=== PATIENT | female | born 1985 | race Caucasian/White ===

== ENCOUNTER 2020-01-28 20:21 | Inpatient (IN) | payer OTHER ==
[2020-01-29] MEDS ORDERED: Calcium Carbonate 500 MG Tab.Chew PO PRN (00:48)
[2020-01-29] MEDS ORDERED: Nalbuphine 10 MG/ML Syringe IVPUSH PRN (00:48)
[2020-01-29] MEDS ORDERED: Sodium Chloride 0.9% 10 ML Syringe FLUSH PRN (00:48)
[2020-01-29] MEDS ORDERED: Acetaminophen 325 MG Tab PO PRN ×2 (00:48→08:14)
[2020-01-29] MEDS ORDERED: Ondansetron 4 MG/2 ML SDV IVPUSH PRN ×2 (00:48→02:22)
[2020-01-29] MEDS ORDERED: Lidocaine 1% 50 ML MDV INJECT ONE (00:48)
[2020-01-29] MEDS ORDERED: Oxytocin/Lactated Ringers 10 UNIT/1,000 ML BAG IV SCH ×2 (01:00)
[2020-01-29] MEDS: Lactated Ringers 1,000 ML IV SCH ×3 (01:45→05:54)
[2020-01-29] MEDS ORDERED: ePHEDrine 50 MG/ML SDV IVPUSH PRN (02:22)
[2020-01-29] MEDS ORDERED: fentaNYL 100 MCG/2 ML SDV EPIDUR PRN (02:22)
--- NOTE | 2020-01-29 02:24 | PCM.PREANE ---
Preanesthetic Assessment - Procedure Proposed Procedure: Epidural - Anesthesia/Transfusion/Family Hx Anesthesia History: Prior Anesthesia Without Reaction Family History of Anesthesia Reaction: No Transfusion History: No Prior Transfusion(s) Intubation History: Unknown - Review of Systems General: No Symptoms Pulmonary: No Symptoms Cardiovascular: No Symptoms, Lightheadedness (positional changes/) Gastrointestinal: No Symptoms (GERD) Neurological: No Symptoms (Motion sickness with flying), Numbness (Bilateral hands when sleeping) Other: Reports: None - Physical Assessment NPO Status Date: 01/28/20 NPO Status Time: 20:00 Vital Signs: HR:92 Sat:99% B/P:114/83 Temp:98.8 Resp:20 Height: 1.6 m Weight: 97.069 kg ASA Class: 2 Mental Status: Alert & Oriented x3 Airway Class: Mallampati = 2 Dentition: Reports: Normal Dentition, Caries Thyro-Mental Finger Breadths: 3 Mouth Opening Finger Breadths: 3 ROM/Head Extension: Full Lungs: Clear to Auscultation, Normal Respiratory Effort Cardiovascular: Regular Rate, Regular Rhythm, No Murmurs - Lab Values: Laboratory Last Values WBC 11.31 K/mm3 (3.98-10.04) H 01/29/20 01:01 RBC 4.14 M/mm3 (3.98-5.22) 01/29/20 01:01 Hgb 12.7 gm/dl (11.2-15.7) 01/29/20 01:01 Hct 38.9 % (34.1-44.9) 01/29/20 01:01 MCV 94.0 fl (79.4-94.8) 01/29/20 01:01 MCH 30.7 pg (25.6-32.2) 01/29/20 01:01 MCHC 32.6 g/dl (32.2-35.5) 01/29/20 01:01 RDW Std Deviation 44.6 fL (36.4-46.3) 01/29/20 01:01 Plt Count 183 K/mm3 (182-369) 01/29/20 01:01 MPV 10.8 fl (9.4-12.3) 01/29/20 01:01 Neut % (Auto) 74.6 % (34.0-71.1) H 01/29/20 01:01 Lymph % (Auto) 17.0 % (19.3-51.7) L 01/29/20 01:01 Rabun % (Auto) 7.6 % (4.7-12.5) 01/29/20 01:01 Eos % (Auto) 0.4 (0.7-5.8) L 01/29/20 01:01 Baso % (Auto) 0.2 % (0.1-1.2) 01/29/20 01:01 Neut # (Auto) 8.44 K/mm3 (1.56-6.13) H 01/29/20 01:01 Lymph # (Auto) 1.92 K/mm3 (1.18-3.74) 01/29/20 01:01 Rabun # (Auto) 0.86 K/mm3 (0.24-0.36) H 01/29/20 01:01 Eos # (Auto) 0.05 K/mm3 (0.04-0.36) 01/29/20 01:01 Baso # (Auto) 0.02 K/mm3 (0.01-0.08) 01/29/20 01:01 Above labs reviewed and noted and within acceptable ranges to proceed with epidural. - Allergies Allergies/Adverse Reactions: Allergies Allergy/AdvReac Type Severity Reaction Status Date / Time No Known Allergies Allergy Verified 01/28/20 20:34 - Anesthesia Plan Pre-Op Medication Ordered: None - Acknowledgements Anesthesia Type Planned: Epidural Pt an Appropriate Candidate for the Planned Anesthesia: Yes Alternatives and Risks of Anesthesia Discussed w Pt/Guardian: Yes Pt/Guardian Understands and Agrees with Anesthesia Plan: Yes PreAnesthesia Questionnaire - Past Health History Medical/Surgical History: Denies Medical/Surgical History HEENT History: Reports: None Cardiovascular History: Reports: None Respiratory History: Reports: None Gastrointestinal History: Reports: GERD Genitourinary History: Reports: None 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: Musculoskeletal History: Reports: None Neurological History: Reports: None Psychiatric History: Reports: None Endocrine/Metabolic History: Reports: Obesity/BMI 30+ Hematologic History: Reports: Anemia - Infectious Disease History Infectious Disease History: Reports: Chicken Pox - Past Surgical History HEENT Surgical History: Reports: None - HOME MEDS Home Medications: Home Meds Acetaminophen [Tylenol] 650 mg PO Q6H PRN #50 tablet 11/04/14 [Rx] Vit Calc,Iron,Folic [ Vitamins] 1 tab PO DAILY 05/29/16 [History] Ibuprofen [IJD: Ibuprofen] 600 mg PO Q4H PRN #30 tablet 06/01/16 [Rx] - CURRENT (IN HOUSE) MEDS Current Meds: Current Medications Acetaminophen (Tylenol) 650 mg PO Q4H PRN PRN Reason: Pain (Mild 1-3) and fever Calcium Carbonate/Glycine (Tums) 1,000 mg PO Q2H PRN PRN Reason: Indigestion Lactated Ringer's (Ringers, Lactated) 1,000 mls @ 100 mls/hr IV ASDIRECTED KEKE Last Admin: 01/29/20 01:45 Dose: 100 mls/hr Documented by: Oxytocin/Lactated Ringer's (Pitocin In Lr 10 Units/1,000 Ml) 10 unit in 1,000 mls @ 12 mls/hr IV TITRATE KEKE; Protocol Last Admin: 01/29/20 01:46 Dose: 2 munits/min, 12 mls/hr Documented by: Oxytocin/Lactated Ringer's (Pitocin In Lr 10 Units/1,000 Ml) 10 unit in 1,000 mls @ 500 mls/hr IV .CONTINUOUS KEKE Nalbuphine HCl (Nubain) 10 mg IVPUSH Q2H PRN PRN Reason: Pain Ondansetron HCl (Zofran) 4 mg IVPUSH Q4H PRN PRN Reason: Nausea/Vomiting Sodium Chloride (Saline Flush) 10 ml FLUSH ASDIRECTED PRN PRN Reason: Keep Vein Open Discontinued Medications Lidocaine HCl (Xylocaine 1%) 50 ml INJECT ONETIME ONE Stop: 01/29/20 00:49
[2020-01-29] MEDS ORDERED: Bupivacaine/fentaNYL/NS 100 ML Bag EPIDUR SCH (02:30)
[2020-01-29] MEDS ORDERED: Phenylephrine 1 MG in Sodium Chloride 0.9% 10 ML IV SCH (02:30)
[2020-01-29] MEDS ORDERED: Bupivacaine 0.25% 10 ML SDV ONE (06:00)
--- NOTE | 2020-01-29 06:46 | PCM.LDHP ---
L&D History of Present Illness - General Date of Service: 01/29/20 Admit Problem/Dx: Patient Status Order with Admit Dx/Problem 01/28/20 20:34 Patient Status [ADT] Routine Admission Diagnosis/Problem Admission Diagnosis/Problem 01/29/20 06:38 Karlene 35-year-old 3 para 2-0-0-2 white female who was admitted during the night of 01/27/20262019 with SROM. She is 9-6/7 weeks gestational age with an CRIS of 01/30/2020. Source of Information: Patient History Limitations: Reports: No Limitations - History of Present Illness Introduction:: Karlene 35-year-old 3 para 2-0-0-2 white female who was admitted during the night of 01/27/20262019 with SROM. She is 9-6/7 weeks gestational age with an CRIS of 01/30/2020. Fluid is clear. Patient was kicked into an early labor but has required augmentation with Pitocin to achieve adequate contraction pattern. heart tones are reassuring. 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 CRIS of 01/30/2020 as determined by a certain last menstrual period dating with LMP 04/25/2019. This is supported by at least 2 ultrasounds during the course of the . Patient had menarche at age 15. Cycles q. 28 days. No control at the time of conception. Past obstetric history includes the followin. Female born 11/03/2012 at 40-5/7 weeks gestational age after 24 hours of labor. 7 pounds 2 ouncesNSVDepidural. Second-degree laceration and nuchal cord 2. Male born 05/30/2014 at 38-2/7 weeks gestational age after 12 hours of labor. Male infantNSVDepiduralC [facility]'s name is Pablo Carmona. course has been relatively unremarkable. She was seen early in the at approximately 10 weeks gestation. She had regular visits. Weight gain was from 166.8 pounds to 213 pounds for a 46 increase. Vital signs are stable throughout the course and her fundal height growth was appropriate. Patient had her diphtheria pertussis tetanus immunization on 11/25/2019. She plans to breast-feed. She declined genetic testing. Group B strep screen was negative. She desires epidural in labor. She is rubella immune. She received her HPV vaccination in 2010. Her hepatitis B vaccination in 1999. Laboratory testing shows blood to be be positive with a negative a ntibody screen. Hemoglobin is 14.1 g/dL and platelets are 281,000 at first visit. She is rubella immune. RPR was nonreactive. Urine culture was negative at that time. Hepatitis B surface antigen and HIV assays were both negative. Chlamydia and gonorrhea tests were negative. Second trimester labs showed a hemoglobin of 11.6 g/dL. Platelets were 243,000 and diabetic screening test was normal at 111. RPR on 10/29/2019 was nonreactive. Group B strep screen was negative. Allergies: None Medications: 1. vitamins 2. Probiotic gummy tablets 3.Diclegis compounded . Past medical history: 1. x2 2. She has fatty deposits in the breasts bilaterally. Family history: There has had but is alive and well. Father is alive and well.. 3 brothers alive and well. Maternal grandmother is from CHF. Maternal grandfather secondary to [place] at age 43. Paternal grandmother secondary to old age. Paternal grandfather second cristian to leukemia. There are no , bleeding, clotting, anesthesia or asthma problems noted in the . Social history: Patient is . 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 She lives in [place], [place]. She is a college graduate. is Kishan. She does not use any significant alcohol, drugs or tobacco. Review of systems: In general patient has no complaints. Skin: Negative Lungs: No infectious symptoms or shortness of breath Cardiovascular: No chest pain or exercise intolerance Breasts: No lumps, changes in size, pain, dimpling, discharge or axillary or supraclavicular concerns. GI: Negative : Negative Musculoskeletal: Negative Neurological: Negative In general the patient is well-developed, well-nourished, pleasant female of stated age in no acute distress. Evaluation in clinic her blood pressure was 108/66. Weight was 213.4 pounds with first weight 166.8 pounds. Fundal height was 40.5 cm. Skin is warm dry without lesions. HEENT, neck and back within normal limits. Lungs are clear with good breath sounds in all lung klein. Breast exam deferred at this time having been done at first visit and found to be normal. Patient does plan to breast-feed. Cardiovascular exam shows regular and rhythm without murmurs. Abdomen is f avid with fundal height on last evaluation clinic at 40.5 cm. Baby in vertex presentation Genital digital exam on last evaluation clinic shows cervix to be 2 cm, 80% effaced, very soft, mid position, -3 station. Vertex presentation. Extremities and neurological exam are grossly within normal limits. Pain Score: 0 - Related Data Allergies/Adverse Reactions: Allergies Allergy/AdvReac Type Severity Reaction Status Date / Time No Known Allergies Allergy Verified 01/28/20 20:34 Home Medications: Home Meds Acetaminophen [Tylenol] 650 mg PO Q6H PRN #50 tablet 11/04/14 [Rx] Vit Calc,Iron,Folic [ Vitamins] 1 tab PO DAILY 05/29/16 [History] Ibuprofen [IJD: Ibuprofen] 600 mg PO Q4H PRN #30 tablet 06/01/16 [Rx] Past Medical History - Past Health History Medical/Surgical History: Denies Medical/Surgical History HEENT History: Reports: None Cardiovascular History: Reports: None Respiratory History: Reports: None Gastrointestinal History: Reports: GERD Genitourinary History: Reports: None 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: Musculoskeletal History: Reports: None Neurological History: Reports: None Psychiatric History: Reports: None Endocrine/Metabolic History: Reports: Obesity/BMI 30+ Hematologic History: Reports: Anemia - Infectious Disease History Infectious Disease History: Reports: Chicken Pox - Past Surgical History HEENT Surgical History: Reports: None Social & Family History - Family History Family Medical History: Noncontributory - Tobacco Use Smoking Status *Q: Never Smoker - Caffeine Use Caffeine Use: Reports: Coffee - Recreational Drug Use Recreational Drug Use: No H&P Review of Systems - Review of Systems: Review Of Systems: See Below L&D Exam - Exam Exam: See Below - Vital Signs Vital Signs: Last Vital Signs Temp 37.1 C 01/28/20 20:34 Pulse 109 H 01/28/20 20:34 Resp 12 01/28/20 20:34 BP 119/82 01/28/20 20:34 Pulse Ox 99 08/05/20 20:34 Weight: 97.069 kg - Patient Data Lab Results Last 24 hrs: Laboratory Results - last 24 hr 01/29/20 01/29/20 Range/Units 01:01 03:25 WBC 11.31 H (3.98-10.04) K/mm3 RBC 4.14 (3.98-5.22) M/mm3 Hgb 12.7 (11.2-15.7) gm/dl Hct 38.9 (34.1-44.9) % MCV 94.0 (79.4-94.8) fl MCH 30.7 (25.6-32.2) pg MCHC 32.6 (32.2-35.5) g/dl RDW Std Deviation 44.6 (36.4-46.3) fL Plt Count 183 (182-369) K/mm3 MPV 10.8 (9.4-12.3) fl Neut % (Auto) 74.6 H (34.0-71.1) % Lymph % (Auto) 17.0 L (19.3-51.7) % Marion % (Auto) 7.6 (4.7-12.5) % Eos % (Auto) 0.4 L (0.7-5.8) Baso % (Auto) 0.2 (0.1-1.2) % Neut # (Auto) 8.44 H (1.56-6.13) K/mm3 Lymph # (Auto) 1.92 (1.18-3.74) K/mm3 Marion # (Auto) 0.86 H (0.24-0.36) K/mm3 Eos # (Auto) 0.05 (0.04-0.36) K/mm3 Baso # (Auto) 0.02 (0.01-0.08) K/mm3 COVID-19 (ALIVIA) Negative (NEGATIVE) Result Diagrams: 01/29/20 01:01 Problem List Initiated/Reviewed/Updated: Yes Orders Last 24hrs: Active Orders 24 hr Category Date Time Status Patient Status [ADT] Routine ADT 01/28/20 20:34 Active Activity as Tolerated [RC] PFP Care 01/29/20 00:48 Active Antiembolic Devices [RC] .Routine Care 01/29/20 00:51 Active Communication Order [RC] ASDIRECTED Care 01/29/20 00:48 Active Heart Tones [RC] ASDIRECTED Care 01/29/20 00:48 Active Non Stress Test [RC] PER UNIT ROUTINE Care 01/28/20 20:34 Active Non Stress Test [RC] PER UNIT ROUTINE Care 01/29/20 00:48 Active Notify Provider [RC] ASDIRECTED Care 01/29/20 02:22 Active Notify Provider [RC] PFP Care 01/29/20 00:48 Active Notify Provider [RC] PRN Care 01/29/20 00:48 Active Oxygen Therapy [RC] ASDIRECTED Care 01/29/20 02:22 Active Peripheral IV Care [RC] . DIRECTED Care 01/29/20 00:48 Active Pulse Oximetry [RC] ASDIRECTED Care 01/29/20 02:22 Active VTE/DVT Education [RC] PER UNIT ROUTINE Care 01/29/20 00:51 Active Vital Signs [RC] PER UNIT ROUTINE Care 01/28/20 20:34 Active Regular Diet [DIET] Diet 01/28/20 Breakfast Active BLOOD BANK HOLD SPECIMEN [BBK] Stat Lab 01/29/20 00:48 Ordered RAPID PLASMA REAGIN,RPR [CHEM] Routine Lab 01/29/20 01:01 Received Acetaminophen [Tylenol] Med 01/29/20 00:48 Active 650 mg PO Q4H PRN Bupivacaine/fentaNYL/NS [fentaNYL/Bupivacaine/NS 2 MCG- Med 01/29/20 02:30 Active 0.125% 100 ML] 100 ml EPIDUR ASDIRECTED Calcium Carbonate [Tums] Med 01/29/20 00:48 Active 1,000 mg PO Q2H PRN Lactated Ringers [Ringers, Lactated] 1,000 ml Med 01/29/20 01:00 Active IV ASDIRECTED Nalbuphine [Nubain] Med 01/29/20 00:48 Active 10 mg IVPUSH Q2H PRN Ondansetron [Zofran] Med 01/29/20 02:22 Active 4 mg IVPUSH ONETIME PRN Ondansetron [Zofran] Med 01/29/20 00:48 Active 4 mg IVPUSH Q4H PRN Oxytocin/Lactated Ringers [Pitocin in LR 10 Units/1,000 Med 01/29/20 01:00 Active ML] 10 unit in 1,000 ml IV .CONTINUOUS Oxytocin/Lactated Ringers [Pitocin in LR 10 Units/1,000 Med 01/29/20 01:00 Active ML] 10 unit in 1,000 ml IV TITRATE Phenylephrine [Mario-Synephrine] 1 mg Med 01/29/20 02:30 Active Sodium Chloride 0.9% [Normal Saline] 10 ml IV TITRATE Sodium Chloride 0.9% [Saline Flush] Med 01/29/20 00:48 Active 10 ml FLUSH ASDIRECTED PRN ePHEDrine [ePHEDrine sulfate] Med 01/29/20 02:22 Active 5 mg IVPUSH ASDIRECTED PRN fentaNYL [Sublimaze] Med 01/29/20 02:22 Active 100 mcg EPIDUR Q3H PRN DVT/VTE Prophylaxis Reflex [OM.PC] Routine Oth 01/29/20 00:49 Ordered Electronic Heart Tones Ext w TOCO [WOMSER] Oth 01/29/20 00:48 Ordered Routine Electronic Heart Tones Internal [WOMSER] Per Unit Oth 01/29/20 00:48 Ordered Routine Peripheral IV Insertion Adult [OM.PC] Routine Oth 01/29/20 00:48 Ordered Resuscitation Status Routine Resus Stat 01/28/20 20:34 Ordered Medication Orders Acetaminophen (Tylenol) 650 mg PO Q4H PRN PRN Reason: Pain (Mild 1-3) and fever Calcium Carbonate/Glycine (Tums) 1,000 mg PO Q2H PRN PRN Reason: Indigestion Ephedrine Sulfate (Ephedrine Sulfate) 5 mg IVPUSH ASDIRECTED PRN PRN Reason: Hypotension Fentanyl (Sublimaze) 100 mcg EPIDUR Q3H PRN PRN Reason: Pain Last Admin: 01/29/20 04:07 Dose: 100 mcg Documented by: JUNAA Fentanyl/Bupivacaine HCl (Fentanyl/Bupivacaine/Ns 2 Mcg-0.125% 100 Ml) 100 ml EPIDUR ASDIRECTED [facility] Last Admin: 01/29/20 04:11 Dose: 100 ml Documented by: JUANA Lactated Ringer's (Ringers, Lactated) 1,000 mls @ 100 mls/hr IV ASDIRECTED [facility] Last Admin: 01/29/20 05:54 Dose: 100 mls/hr Documented by: Infusion: 01/29/20 05:54 Dose: 100 mls/hr Documented by: Admin: 01/29/20 04:27 Dose: 100 mls/hr Documented by: Infusion: 01/29/20 04:27 Dose: 100 mls/hr Documented by: Admin: 01/29/20 01:45 Dose: 100 mls/hr Documented by: JUANA Oxytocin/Lactated Ringer's (Pitocin In Lr 10 Units/1,000 Ml) 10 unit in 1,000 mls @ 12 mls/hr IV TITRATE KEKE; Protocol Last Titration: 01/29/20 03:30 Dose: 8 munits/min, 48 mls/hr Documented by: Titration: 01/29/20 03:00 Dose: 6 munits/min, 36 mls/hr Documented by: Titration: 01/29/20 02:30 Dose: 4 munits/min, 24 mls/hr Documented by: Admin: 01/29/20 01:46 Dose: 2 munits/min, 12 mls/hr Documented by: JUANA Oxytocin/Lactated Ringer's (Pitocin In Lr 10 Units/1,000 Ml) 10 unit in 1,000 mls @ 500 mls/hr IV .CONTINUOUS KEKE Phenylephrine HCl 1 mg/ Sodium (Chloride) 10.1 mls @ 1 mls/sec IV TITRATE KEKE; Protocol Nalbuphine HCl (Nubain) 10 mg IVPUSH Q2H PRN PRN Reason: Pain Ondansetron HCl (Zofran) 4 mg IVPUSH Q4H PRN PRN Reason: Nausea/Vomiting Last Admin: 01/29/20 05:51 Dose: 4 mg Documented by: JUANA Ondansetron HCl (Zofran) 4 mg IVPUSH ONETIME PRN PRN Reason: Nausea/Vomiting Sodium Chloride (Saline Flush) 10 ml FLUSH ASDIRECTED PRN PRN Reason: Keep Vein Open Assessment/Plan Comment:: 1. In 6/7-week intrauterine , SROM, active labor, reassuring heart tones. 2. Group B strep screen negative 3. Patient desires epidural 4. Patient plans to breast-feed. 5. Rubella titer shows immunity. 6.Tdap given on 11/25/2019 Plan: 1. Anticipate normal spontaneous vaginal liver 2. Pitocin augmentation as indicated 3. Support breast-feeding decision 4. Epidural as needed 5. CBC upon admission 6. Routine labor care.
--- NOTE | 2020-01-29 08:07 | PCM.SN.2 ---
- Free Text/Narrative Note: Delivery note: Karlene 35-year-old 3 para 2-0-0-2 white female who was admitted during the night of 01/27/20262019 with SROM. She is 9-6/7 weeks gestational age with an CRIS of 01/30/2020. Slowly and was then augmented with Pitocin. She reached complete cervical dilation at approximately 0730 hrs. on 01/29/2020. She was experiencing severe variable decelerations to the 70s-80s lasting for up to 1 minute. Decision was made to proceed with vacuum extraction delivery. Vacuum extraction was quickly discussed with patient eluding risks, benefits, alternatives of care and patient gave verbal consent. Extraction was applied. Patient pushed for 2 contractions and 0735 hrs. delivered a viable, cuevas, female with Apgars of 5 and 9, weight of 3410 g (7 pounds 8.3 ounces, length of 21.0 inches in a right occiput posterior position. The baby is placed on mom's abdomen. Nose mouth were bulb suctioned and baby was dried with a warm blanket. Pitocin was increased to 500 cc/h to facilitate increase in uterine tone and decrease likelihood of uterine bleeding. Name is Gabriela. The umbilical cord was times 2 and cut by the baby's father Kishan. Cord blood was obtained. The umbilical cord had 3 vessels. The baby was transferred to the warmer, suctioned and evaluated. She did well. Patient was noted to have a second-degree laceration. This was repaired with 3- 0 Monocryl in a routine fashion. Patient tolerated this well and epidural labor analgesia was used for perineal laceration repair anesthesia. The placenta delivered at 0750 hrs. in a [place] presentation it appeared intact and complete and was discarded per patient desire. Uterus was found to be firm. Minimal bleeding is encountered. Patient was returned to the supine position. Patient plans to breast-feed. Estimated blood loss was 100 cc. Condition: Good
[2020-01-29] MEDS ORDERED: Witch Hazel Medicated Pads 40/Jar TOP PRN (08:14)
[2020-01-29] MEDS ORDERED: Docusate Sodium 100 MG Cap PO PRN (08:14)
[2020-01-29] MEDS ORDERED: Benzocaine/Menthol 20%-0.5% Spray 56 GM Canister TOP PRN (08:14)
[2020-01-29] MEDS: Ibuprofen 600 MG Tab PO PRN ×3 (11:12→21:06)
[2020-01-30] MEDS: Ibuprofen 600 MG Tab PO PRN ×2 (02:02→07:31)
--- NOTE | 2020-01-30 06:09 | PCM.DCSUM1 ---
Discharge Summary - Hospital Course Free Text/Narrative:: Karlene 35-year-old 3 para 2-0-0-2 white female who was admitted during the night of 01/27/20262019 with SROM. She is 9-6/7 weeks gestational age with an CRIS of 01/30/2020. Slowly and was then augmented with Pitocin. She reached complete cervical dilation at approximately 0730 hrs. on 01/29/2020. She was experiencing severe variable decelerations to the 70s-80s lasting for up to 1 minute. Decision was made to proceed with vacuum extraction delivery. Vacuum extraction was quickly discussed with patient eluding risks, benefits, alternatives of care and patient gave verbal consent. Extraction was applied. Patient pushed for 2 contractions and 0735 hrs. delivered a viable, cuevas, female with Apgars of 5 and 9, weight of 3410 g (7 pounds 8.3 ounces, length of 21.0 inches in a right occiput posterior position. The baby is placed on mom's abdomen. Nose mouth were bulb suctioned and baby was dried with a warm blanket. Pitocin was increased to 500 cc/h to facilitate increase in uterine tone and decrease likelihood of uterine bleeding. Name is Gabriela. The umbilical cord was times 2 and cut by the baby's father Kishan. Cord blood was obtained. The umbilical cord had 3 vessels. The baby was transferred to the warmer, suctioned and evaluated. She did well. Patient was noted to have a second-degree laceration. This was repaired with 3- 0 Monocryl in a routine fashion. Patient tolerated this well and epidural labor analgesia was used for perineal laceration repair anesthesia. The placenta delivered at 0750 hrs. in a [place] presentation it appeared intact and complete and was discarded per patient desire. Uterus was found to be firm. Minimal bleeding is encountered. Patient was returned to the supine position. Patient plans to breast-feed. Estimated blood loss was 100 cc. Form patient is done well. She has minimal lochia, is voiding well and nursing without problems. Requesting discharge home. Condition: Good Diagnosis: Stroke: No - Discharge Data Discharge Date: 01/30/20 Discharge Disposition: Home, Self-Care 01 Condition: Good - Referral to Home Health Primary Care Physician: Alden Rivas MD - Patient Instructions Diet: Regular Diet as Tolerated (Nursing diet with increased calories and yohana cium as recommended) Activity: As Tolerated (No intercourse or tampons until bleeding resolves) Driving: May Drive Today Showering/Bathing: May Shower Showering/Bathing, Other: May take a bath Notify Provider of: Fever, Increased Pain, Swelling and Redness, Nausea and/or Vomiting - Discharge Plan Home Medications: Home Meds Acetaminophen [Tylenol] 650 mg PO Q6H PRN #50 tablet 11/04/14 [Rx] Vit Calc,Iron,Folic [ Vitamins] 1 tab PO DAILY 05/29/16 [History] Ibuprofen [IJD: Ibuprofen] 600 mg PO Q4H PRN #30 tablet 06/01/16 [Rx] Referrals: Alden Rivas MD [Primary Care Provider] - (Return to [facility] weeks.) - Discharge Summary/Plan Comment DC Time >30 min.: No Discharge Summary/Plan Comment: Discharge instructions: 1. Discharge home 2. Diet, activity and follow-up discussed with patient. Recommend nursing diet with increased calories and calcium. 3. Precautions given concern increased pain, bleeding, temperature, signs/symptoms of DVT/PE. 4. Medications per home medication was printed, discussed with and given to the patient. 5. Return to clinic-Dr. Rivas[facility] in 2 weeks. Diagnosis: Term -delivered Condition: Good - Patient Data Vitals - Most Recent: Last Vital Signs Temp 36.8 C 01/30/20 02:59 Pulse 83 01/30/20 02:59 Resp 16 01/30/20 02:59 BP 119/65 01/30/20 02:59 Pulse Ox 98 01/30/20 02:59 Weight - Most Recent: 97.069 kg I&O - Last 24 hours: Intake & Output 01/29/20 01/29/20 01/30/20 14:59 22:59 06:59 Intake Total 1620 120 Balance 1620 120 Lab Results - Last 24 hrs: Laboratory Results - last 24 hr 01/29/20 Range/Units 01:01 RPR Non-reactive (NONREACTIVE) Med Orders - Current: Current Medications Acetaminophen (Tylenol) 650 mg PO Q4H PRN PRN Reason: mild pain or fever Benzocaine/Menthol (Dermoplast Pain Relief [place]) 0 gm TOP ASDIRECTED PRN PRN Reason: Perineal Comfort Measure Last Admin: 01/29/20 11:14 Dose: 1 can Documented by: Docusate Sodium (Colace) 100 mg PO BID PRN PRN Reason: Constipation Last Admin: 01/29/20 21:05 Dose: 100 mg Documented by: Ibuprofen (Motrin) 600 mg PO Q4H PRN PRN Reason: Mild pain or fever Last Admin: 01/30/20 02:02 Dose: 600 mg Documented by: Lorene Fuentes ([place]) 1 pad TOP ASDIRECTED PRN PRN Reason: Perineal Comfort Measure Last Admin: 01/29/20 11:14 Dose: 1 jar Documented by: Discontinued Medications Acetaminophen (Tylenol) 650 mg PO Q4H PRN PRN Reason: Pain (Mild 1-3) and fever Bupivacaine HCl (Sensorcaine-Mpf 0.25%) 10 ml .ROUTE .STK-MED ONE Stop: 01/29/20 06:01 Calcium Carbonate/Glycine (Tums) 1,000 mg PO Q2H PRN PRN Reason: Indigestion Ephedrine Sulfate (Ephedrine Sulfate) 5 mg IVPUSH ASDIRECTED PRN PRN Reason: Hypotension Fentanyl (Sublimaze) 100 mcg EPIDUR Q3H PRN PRN Reason: Pain Last Admin: 01/29/20 04:07 Dose: 100 mcg Documented by: Fentanyl/Bupivacaine HCl (Fentanyl/Bupivacaine/Ns 2 Mcg-0.125% 100 Ml) 100 ml EPIDUR ASDIRECTED KEKE Last Admin: 01/29/20 04:11 Dose: 100 ml Documented by: Lactated Ringer's (Ringers, Lactated) 1,000 mls @ 100 mls/hr IV ASDIRECTED KEKE Last Admin: 01/29/20 05:54 Dose: 100 mls/hr Documented by: Oxytocin/Lactated Ringer's (Pitocin In Lr 10 Units/1,000 Ml) 10 unit in 1,000 mls @ 12 mls/hr IV TITRATE KEKE; Protocol Last Titration: 01/29/20 03:30 Dose: 8 munits/min, 48 mls/hr Documented by: Oxytocin/Lactated Ringer's (Pitocin In Lr 10 Units/1,000 Ml) 10 unit in 1,000 mls @ 500 mls/hr IV .CONTINUOUS KEKE Last Admin: 01/29/20 07:35 Dose: 500 mls/hr Documented by: Phenylephrine HCl 1 mg/ Sodium (Chloride) 10.1 mls @ 1 mls/sec IV TITRATE KEKE; Protocol Lidocaine HCl (Xylocaine 1%) 50 ml INJECT ONETIME ONE Stop: 01/29/20 00:49 Last Admin: 01/29/20 21:53 Dose: Not Given Documented by: Nalbuphine HCl (Nubain) 10 mg IVPUSH Q2H PRN PRN Reason: Pain Ondansetron HCl (Zofran) 4 mg IVPUSH Q4H PRN PRN Reason: Nausea/Vomiting Last Admin: 01/29/20 05:51 Dose: 4 mg Documented by: Ondansetron HCl (Zofran) 4 mg IVPUSH ONETIME PRN PRN Reason: Nausea/Vomiting Sodium Chloride (Saline Flush) 10 ml FLUSH ASDIRECTED PRN PRN Reason: Keep Vein Open
[2020-01-30 08:25] VITALS: BP 103/56; PULSE 77
== END 2020-01-30 10:30 | disposition home or self-care (01) | DRG 807 ==
LOC: JD.OBCHECK 20:21 → JD.OB 20:26 → JD.OBCHECK 01-29 03:33 → JD.OB 01-29 03:33 → OBSVTOIN 01-29 07:35 → JD.MS 01-29 07:52 → JD.OB 01-29 16:11
PROVIDERS: ADMIT Obstetrics & Gynecology; ATTEND Obstetrics & Gynecology
PROC: 10D07Z6 Extraction of Products of Conception, Vacuum, Via Natural or Artificial Opening (ICD-10-PCS; principal; 2020-01-29)
PROC: 0KQM0ZZ Repair Perineum Muscle, Open Approach (ICD-10-PCS; 2020-01-29)
PROC: 3E0R3BZ Introduction of Anesthetic Agent into Spinal Canal, Percutaneous Approach (ICD-10-PCS; 2020-01-29)
PROC: 00HU33Z Insertion of Infusion Device into Spinal Canal, Percutaneous Approach (ICD-10-PCS; 2020-01-29)
DX: O99.62 Diseases of the digestive system complicating childbirth (principal); Z37.0 Single live birth; O76 Abnormality in fetal heart rate and rhythm complicating labor and delivery; O70.1 Second degree perineal laceration during delivery; K21.9 Gastro-esophageal reflux disease without esophagitis; O99.214 Obesity complicating childbirth; E66.9 Obesity, unspecified; O99.02 Anemia complicating childbirth; D64.9 Anemia, unspecified; Z3A.39 39 weeks gestation of pregnancy; Z11.59 Encounter for screening for other viral diseases
CPT/HCPCS: 01967; 36415; 51702; 59025; 59409; 85025; 86592; A9270-GY; J2405; J2590; J3010; J3490; J7120; U0002

== ENCOUNTER 2024-07-10 11:54 | Inpatient (IN) | payer BC ==
[2024-07-10] MEDS ORDERED: Nalbuphine 10 MG/1 ML Vial IVPUSH PRN (12:35)
[2024-07-10] MEDS ORDERED: Ondansetron 4 MG/2 ML SDV IVPUSH PRN (12:35)
[2024-07-10] MEDS ORDERED: Acetaminophen 325 MG Tab PO PRN ×2 (12:35→22:33)
[2024-07-10] MEDS ORDERED: Oxytocin/0.9 % Sodium Chloride 30 UNIT/500 ML BAG IV SCH ×2 (12:45→22:33)
[2024-07-10 13:13] LABS: BASOPHILS PERCENT AUTO 0.1 % (0.0-1.0); EOSINOPHILS PERCENT AUTO 0.3 % (0.0-6.0); HEMATOCRIT 36.2 % (37.0-47.0); HEMOGLOBIN 11.9 gm/dl (12.0-16.0); IMMATURE GRAN ABSOLUTE AUTO 0.01 K/mm3 (0.00-0.05); IMMATURE GRAN PERCENT AUTO 0.1 % (0.0-0.4); LYMPHOCYTES ABSOLUTE AUTO 1.3 K/mm3 (1.0-4.8); LYMPHOCYTES PERCENT AUTO 16.8 % (24.0-44.0); MEAN CORPUSCULAR HEMOGLOBIN 30.3 pg (28.0-32.0); MEAN CORPUSCULAR HGB CONC 32.9 g/dl (32.0-36.0); MEAN CORPUSCULAR VOLUME 92.1 fl (83.0-99.0); MEAN PLATELET VOLUME 11.1 fl (9.4-12.3); MONOCYTES ABSOLUTE AUTO 0.4 K/mm3 (0.0-0.8); MONOCYTES PERCENT AUTO 4.5 % (0.0-8.0); NEUTROPHILS ABSOLUTE AUTO 6.1 K/mm3 (1.8-7.7); NEUTROPHILS PERCENT AUTO 78.2 % (41.0-71.0); PLATELET COUNT,PLT 167 K/mm3 (150-400); RED BLOOD CELL COUNT 3.93 M/mm3 (4.10-5.30); WHITE BLOOD CELL COUNT,WBC 7.75 K/mm3 (3.9-11.3)
[2024-07-10] MEDS: Oxytocin/0.9 % Sodium Chloride 30 UNIT/500 ML BAG IV SCH (13:16)
[2024-07-10] MEDS: Lactated Ringers 1,000 ML IV SCH (13:16)
[2024-07-10] MEDS ORDERED: ePHEDrine 50 MG/ML SDV IVPUSH PRN (16:23)
[2024-07-10] MEDS ORDERED: diphenhydrAMINE 50 MG/ML SDV IVPUSH PRN (16:23)
[2024-07-10] MEDS: Bupivacaine/fentaNYL/NS 100 ML Bag EPIDUR PRN (16:32)
[2024-07-10] MEDS: fentaNYL 100 MCG/2 ML SDV EPIDUR PRN (16:32)
[2024-07-10] MEDS: Lidocaine 1% 50 ML MDV INJECT PRN (22:32)
[2024-07-10] MEDS ORDERED: Simethicone 80 MG Tab.Chew PO PRN (22:33)
[2024-07-10] MEDS ORDERED: Magnesium Hydroxide 400 MG/5 ML Susp 30 ML Cup PO PRN (22:33)
[2024-07-10] MEDS ORDERED: Aluminum Hydroxide/Magnesium Hydroxide/Simethicone Susp 30 ML Cup PO PRN (22:33)
[2024-07-10] MEDS ORDERED: Famotidine 20 MG Tab PO PRN (22:33)
[2024-07-10] MEDS ORDERED: Docusate Sodium 100 MG Cap PO PRN (22:33)
[2024-07-10] MEDS ORDERED: Hydrocortisone Acetate 25 MG Supp RECTAL PRN (22:33)
[2024-07-10] MEDS: Ibuprofen 600 MG Tab PO SCH (23:49)
[2024-07-10] MEDS: Witch Hazel Medicated Pads 40/Jar TOP PRN (23:49)
[2024-07-10] MEDS: Benzocaine/Menthol 20%-0.5% Spray 78 GM Cannister TOP PRN (23:49)
[2024-07-11] MEDS: Prenatal Multivitamin with Calcium/Folic Acid/Iron Tab PO SCH (09:07)
[2024-07-12 05:39] VITALS: PULSE 82
[2024-07-12 09:47] VITALS: BP 120/71
== END 2024-07-12 10:25 | disposition home or self-care (01) | DRG 560 ==
LOC: UNDOADMOB 11:54 → JD.OB 11:54 → OBSVTOIN 21:04 → JD.OB 21:04
PROVIDERS: ADMIT Obstetrics & Gynecology; ATTEND Obstetrics & Gynecology
PROC: 10907ZC Drainage of Amniotic Fluid, Therapeutic from Products of Conception, Via Natural or Artificial Opening (ICD-10-PCS; principal; 2024-07-10)
PROC: 3E033VJ Introduction of Other Hormone into Peripheral Vein, Percutaneous Approach (ICD-10-PCS; principal; 2024-07-10)
PROC: 0HQ9XZZ Repair Perineum Skin, External Approach (ICD-10-PCS; principal; 2024-07-10)
PROC: 3E0R3BZ Introduction of Anesthetic Agent into Spinal Canal, Percutaneous Approach (ICD-10-PCS; principal; 2024-07-10)
PROC: 10D07Z6 Extraction of Products of Conception, Vacuum, Via Natural or Artificial Opening (ICD-10-PCS; principal; 2024-07-10)
DX: O26.643 Intrahepatic cholestasis of pregnancy, third trimester (principal); O99.62 Diseases of the digestive system complicating childbirth; O99.214 Obesity complicating childbirth; K21.9 Gastro-esophageal reflux disease without esophagitis; E78.79 Other disorders of bile acid and cholesterol metabolism; K76.89 Other specified diseases of liver; O70.0 First degree perineal laceration during delivery; Z3A.37 37 weeks gestation of pregnancy; Z37.0 Single live birth
CPT/HCPCS: 01967; 36415; 51702; 59025; 59409; 85025; 86592; 86850; 86900; 86901; A9270-GY; C1726; J3010; J3490; J7120; J7999